=== PATIENT | female | born 1955 | race Caucasian/White ===

== ENCOUNTER 2019-11-15 08:07 | Outpatient (CLI) | payer MEDICARE, SELFPAY ==
--- NOTE | ~2019-11-15 | MM_ITS ---
EXAMINATION: MM screening adelina BI w eneida HISTORY: Screening mammogram TECHNIQUE: Craniocaudal and mediolateral oblique 3-D tomosynthesis images were obtained and synthetic 2-D images were generated. CAD analysis was submitted and interpreted. COMPARISON: 10/26/2018, 10/20/2017, 10/08/2016 BREAST PARENCHYMAL COMPOSITION: The breasts are heterogeneously dense, which may obscure small masses . FINDINGS: RIGHT BREAST: There is possible architectural distortion in the middle/posterior third of the outer b reast best appreciated 10 cm from the nipple on the craniocaudal view. LEFT BREAST: There is possible architectural distortion in the posterior third of the lower breast be st appreciated 9 cm from the on the craniocaudal view. IMPRESSION: 1. Areas of possible architectural distortion in the breasts. 2. Additional mammographic views and possible breast ultrasound are recommended. BI-RADS Category 0: Incomplete: Needs additional imaging evaluation. Reviewed, dictated and finalized at location A. IMPRESSION: 1. Areas of possible architectural distortion in the breasts. 2. Additional mammographic views and possible breast ultrasound are recommended . BI-RADS Category 0: Incomplete: Needs additional imaging evaluation.
== END 2019-11-15 08:08 | disposition home or self-care (01) ==
LOC: ANHIMG 08:17
PROVIDERS: PCP Physician Assistant; Visit Provider Obstetrics & Gynecology
DX: Z12.31 Encounter for screening mammogram for malignant neoplasm of breast (principal); R92.8 Other abnormal and inconclusive findings on diagnostic imaging of breast
CPT/HCPCS: 77063; 77067

== ENCOUNTER 2019-12-10 12:12 | Outpatient (CLI) | payer MEDICARE, SELFPAY ==
--- NOTE | ~2019-12-10 | MMUS_ITS ---
EXAMINATION: MM diagnostic mammo BI, US breast BI limited HISTORY: Possible architectural distortion of the breasts on screening mammogram TECHNIQUE: Additional 3-D tomosynthesis images of the breasts were performed and synthetic 2-D images were generated. CAD analysis was submitted and interpreted. High resolution limited bilateral breast ultrasound was performed. COMPARISON: 11/15/2019, 08/25/2019, 08/19/2018, 10/08/2016, 09/30/2015 FINDINGS: MAMMOGRAPHIC FINDINGS: Right breast: No definite persistent architectural distortion is identified with spot compression vie ws of the right breast. Left breast: Subtle persistent architectural distortion is questioned on the craniocaudal view at the 6:00 location 10 cm from the nipple however the appearance is less prominent than on the screening m ammogram and possibly due to crossing ligamentous structures. Additionally, no definite architectural distortion is seen on the mediolateral view. ULTRASOUND: Right breast: No suspicious cystic or solid mass is identified. Left breast: No suspicious cystic or solid mass is identified. IMPRESSION: 1. Possible architectural distortion of the left breast without suspicious sonographic correlate. 2. Recommend 6 month follow-up left diagnostic mammogram and possible ultrasound. BI-RADS category 3, probably benign findings. Reviewed, dictated and finalized at location A. IMPRESSION: 1. Possible architectural distortion of the left breast without suspicious sono graphic correlate. 2. Recommend 6 month follow-up left diagnostic mammogram and possible ultrasoun d. BI-RADS category 3, probably benign findings.
== END 2019-12-10 12:13 | disposition home or self-care (01) ==
PROVIDERS: PCP Physician Assistant; Visit Provider Obstetrics & Gynecology
DX: N60.39 Fibrosclerosis of unspecified breast (principal); R92.8 Other abnormal and inconclusive findings on diagnostic imaging of breast
CPT/HCPCS: 76642; 77066

== ENCOUNTER 2020-07-24 12:13 | Outpatient (CLI) | payer MEDICARE, SELFPAY ==
--- NOTE | ~2020-07-24 | MMUS_ITS ---
EXAMINATION: MM diagnostic adelina LT w eneida, US breast LT limited HISTORY: Six-month follow-up for possible left breast architectural distortion TECHNIQUE: Craniocaudal, mediolateral, and mediolateral oblique 3-D tomosynthesis images of the left breast were performed and synthetic 2-D images were generated. CAD analysis was submitted and interpr eted. High resolution limited left breast ultrasound was performed. COMPARISON: 12/10/2019, 11/15/2019, 10/26/2018, 10/20/2017, 10/08/2016 BREAST PARENCHYMAL COMPOSITION: The breasts are heterogeneously dense, which may obscure small masses . FINDINGS: MAMMOGRAPHIC FINDINGS: There is subtle but persistent architectural distortion in the middle/posterior third of the lower br east at the 6:00 location 9.5 cm from the nipple which appears slightly more prominent than on the co mparison examination. No definite mass or suspicious calcification is identified. ULTRASOUND: There is no evidence of focal abnormal solid or cystic lesion in the vicinity of the mammographic fin ding in question. IMPRESSION: 1. Subtle but persistent architectural distortion in the middle third of the lower breast. 2. Tomosynthesis guided biopsy is recommended. BI-RADS category 4, suspicious findings. Reviewed, dictated and finalized at location A. LANGUAGE TRANSLATOR IMPRESSION: 1. Subtle but persistent architectural distortion in the middle third of the lo wer breast. 2. Tomosynthesis guided biopsy is recommended. BI-RADS category 4, suspicious findings.
== END 2020-07-24 12:14 | disposition home or self-care (01) ==
PROVIDERS: PCP Physician Assistant; Visit Provider Obstetrics & Gynecology
DX: R92.8 Other abnormal and inconclusive findings on diagnostic imaging of breast (principal)
CPT/HCPCS: 76642; 77061; 77065; G0279